=== PATIENT | female | born 1945 | race Two or more races ===

== ENCOUNTER 2019-06-01 18:21 | Emergency (ER) | payer MEDICARE, OTHER ==
[~2019-06-01] VITALS: Ht 157.5 cm; Wt 70.8 kg
[2019-06-01] MEDS ORDERED: ACET-2154 GT (18:32)
[2019-06-01] MEDS ORDERED: ACET-2605 PO (18:32)
[2019-06-01] MEDS ORDERED: ACET-2605 GT (18:32)
--- NOTE | 2019-06-01 18:40 | NUR ---
DR. WHITE PLACED STANDARD BALLOON STRAIGHT BOLSTER 20F IN THE G-TUBE STOMA WITHOUT DIFFICULTY.
[2019-06-01] MEDS ORDERED: DIATR MEGLU/DIATRIZOATE SODIUM 30 ML SOLUTION PO ONE (18:45)
[2019-06-01] MEDS ORDERED: DIATR MEGLU/DIATRIZOATE SODIUM 30 ML SOLUTION ONE (18:47)
[2019-06-01] MEDS ORDERED: SALI45SP MM (18:53)
[2019-06-01] MEDS ORDERED: LEVO150T8 GT (18:53)
[2019-06-01] MEDS ORDERED: MAGN400O6 GT (18:53)
[2019-06-01] MEDS ORDERED: GLYC2TAB2 PO (18:53)
[2019-06-01] MEDS ORDERED: HALDOL (18:53)
[2019-06-01] MEDS ORDERED: OMEP20CA15 GT (18:53)
[2019-06-01] MEDS ORDERED: HYPR15DR4 EACHEYE (18:53)
[2019-06-01] MEDS ORDERED: MELA3TAB41 GT (18:53)
[2019-06-01] MEDS ORDERED: LIDOCAINE 4% PATCH TD (18:53)
[2019-06-01] MEDS ORDERED: DOCU50LI GT (18:53)
[2019-06-01] MEDS ORDERED: VALB40CA GT (18:53)
[2019-06-01] MEDS ORDERED: SENN-261 GT (18:54)
[2019-06-01] MEDS ORDERED: SCOPOLAMINE PATCH TD (18:54)
[2019-06-01] MEDS ORDERED: TRAM50TA2 GT (18:54)
[2019-06-01] MEDS ORDERED: SIMV-49 GT (18:54)
[2019-06-01] MEDS ORDERED: SIME80TA15 GT (18:54)
[2019-06-01] MEDS ORDERED: VALP250C3 GT (18:54)
--- NOTE | 2019-06-01 18:55 | NUR ---
aSSUMED CARE OF PATIENT. NO ACUTE DISTRESS NOTED.
--- NOTE | 2019-06-01 18:59 | NUR ---
Call placed to [facility] for Naldo Torres (Patients PMD), call [phone]
--- NOTE | 2019-06-01 19:09 | NUR ---
call placed to [facility] for BLS transport request. [facility] notified that patient will be returning to their care.
--- NOTE | 2019-06-01 19:12 | NUR ---
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
--- NOTE | 2019-06-01 20:48 | NUR ---
Patient in bed, no acute distress noted. 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 VSS
--- NOTE | 2019-06-01 21:08 | NUR ---
Patient discharged to home in stable conditon. Written and verbal after care instructions given. Patient verbalizes understanding of instructions. Patient transported back to [facility] via [facility], chart/report given to Chiquis URBINA.
[2019-06-01 21:09] VITALS: BP 128/81
== END 2019-06-01 21:11 | disposition home or self-care (01) ==
LOC: ER 18:23
DX: K94.23 Gastrostomy malfunction (principal); E78.5 Hyperlipidemia, unspecified; E03.9 Hypothyroidism, unspecified; Z88.0 Allergy status to penicillin; Z79.899 Other long term (current) drug therapy
CPT/HCPCS: 74018; A4663; Q9963